=== PATIENT | male | born 1970 | race Caucasian/White ===

== ENCOUNTER → 2017-05-18 | Outpatient (CLI) | payer BC ==
--- NOTE | 2017-05-18 15:47 | DIAGNOSTIC IMAGING REPORT ---
SOFT TIS HEAD/NECK-THYROID HISTORY: Multinodular thyroid E04.2 Nontoxic multinodular [id number] COMPARISON: None. FINDINGS: Right lobe: Maximum dimension 6.7 cm. Several subcentimeter hypoechoic nodules measuring from 4 to 7 mm. No evidence for a dominant nodule. Left lobe: Maximum dimension 6.5 cm. Complex hypoechoic nodular density inferior left thyroid measuring 2.9 x 2.0 cm. Several associated microcalcifications. Isthmus: No nodules. IMPRESSION: 1. Multinodular thyroid. 2. Dominant nodule inferior aspect left thyroid measuring 2.9 x 2.0 cm. 3. Fine-needle aspiration under ultrasound guidance is recommended of the dominant nodule of the lower left thyroid The above report was generated using voice recognition software. It may contain grammatical, syntax or spelling errors. Electronically signed by: Lars Clayton M.D. 05/18/2017 3:45 PM Dictated Date/Time: 05/18/2017 3:43 PM
== END | disposition home or self-care (01) ==
LOC: C.ULTR 14:06
PROVIDERS: ATTEND Internal Medicine Endocrinology, Diabetes & Metabolism
DX: E04.2 Nontoxic multinodular goiter (principal)

== ENCOUNTER → 2017-05-21 | Outpatient (CLI) | payer BC ==
[~2017-05-21] MED LIST: GADAVIST IV PRN
--- NOTE | 2017-05-21 08:54 | DIAGNOSTIC IMAGING REPORT ---
MRI THE PITUITARY WITHOUT AND WITH CONTRAST CLINICAL HISTORY: E29.1 Hypogonadism in maleE22.1 [id number] COMPARISON STUDY: No previous studies for comparison. FINDINGS: Sagittal T1, an axial 3-D FIESTA, pre and post gadolinium dynamic coronal T1, and post gadolinium sagittal T1-weighted images were acquired. The patient was administered 8 cc of intravenous Gadavist. The pituitary gland is of normal size. The infundibulum is within the midline. No pituitary masses are visualized. IMPRESSION: Normal MRI of the pituitary Electronically signed by: Billy Welsh M.D. 05/21/2017 8:52 AM Dictated Date/Time: 05/21/2017 8:48 AM
--- NOTE | 2017-05-21 12:31 | DIAGNOSTIC IMAGING REPORT ---
ULTRASOUND-GUIDED FINE-NEEDLE ASPIRATION THYROID CLINICAL HISTORY: Left thyroid nodule. COMPARISON STUDY: Thyroid ultrasound 05/18/2015. PROCEDURE: The risks, benefits, and alternatives to the procedure were discussed with the patient. Written informed consent was obtained. The patient was placed supine in ultrasound, and the 2.9 cm nodule in the left lobe of the thyroid was localized by ultrasound and selected for fine needle aspiration. The left neck was prepped and draped in the usual sterile fashion. The nodule was aspirated under ultrasound guidance with 3 passes utilizing 25-gauge needles. Specimens were reviewed by the pathologist in real-time and deemed adequate for diagnosis. The patient tolerated the procedure well and left the department in satisfactory condition. IMPRESSION: Completed fine-needle aspiration of a 2.9 cm left thyroid nodule as above. The above report was generated using voice recognition software. It may contain grammatical, syntax or spelling errors. Electronically signed by: Weston Garcia M.D. 05/21/2017 12:29 PM Dictated Date/Time: 05/21/2017 12:28 PM
== END | disposition home or self-care (01) ==
LOC: C.MRI 07:39
PROVIDERS: ATTEND Internal Medicine Endocrinology, Diabetes & Metabolism
DX: E04.2 Nontoxic multinodular goiter (principal); E22.1 Hyperprolactinemia; E29.1 Testicular hypofunction

== ENCOUNTER → 2017-06-10 | Outpatient (CLI) | payer BC ==
[2017-06-10 08:59] LABS: ISTAT CREATININE 0.9 mg/dl (0.6-1.3); ISTAT HEMOGLOBIN 15.3 g/dl (14.0-18.0); ISTAT IONIZED CALCIUM 1.27 mmol/l (1.12-1.32)
== END | disposition home or self-care (01) ==
LOC: C.LAB 07:44
PROVIDERS: ATTEND Internal Medicine Endocrinology, Diabetes & Metabolism
DX: E22.1 Hyperprolactinemia (principal); R79.89 Other specified abnormal findings of blood chemistry

== ENCOUNTER → 2017-06-16 | Outpatient (CLI) | payer BC ==
--- NOTE | 2017-06-18 15:20 | POLYSOMNOGRAPH REPORT ---
CLINICAL DATA: A 47-year-old male with BMI of [address] Seymour and Dr. Donnelly for evaluation of fatigue and unrefreshing sleep. He has been told in the past that he has occasional snoring. On the evening of 06/16/2017, a home sleep apnea test was performed using [employer] type 3 monitor. RECORDING RESULTS: Total recording time was 10 hours. The patient's monitoring time and estimated sleep time was 9 hours. RESPIRATORY DATA: There was no evidence of clinically significant sleep apnea seen. The AI was 1.3. There were 6 obstructive and 1 central apneic episode. There were 5 hypopneic episodes. The longest respiratory event was 43 seconds. OXIMETRY DATA: No hypoxemia was seen. Oxygen everett was 90%. Mean saturation was 94%. HEART RATE DATA: Heart rates ranged from 40-56 beats per minute. SNORING DATA: Snoring was recorded throughout the night. IMPRESSION: No evidence of clinically significant sleep apnea/hypopnea or nocturnal hypoxemia to explain this patient's symptoms. RECOMMENDATIONS: The patient will be seen back in followup to review his data. NINI
== END | disposition home or self-care (01) ==
LOC: C.NEUR 09:03
PROVIDERS: ATTEND Internal Medicine Pulmonary Disease
DX: R53.83 Other fatigue (principal); R06.83 Snoring

== ENCOUNTER → 2017-06-22 | Outpatient (CLI) | payer BC | END | disposition home or self-care (01) | LOC: C.MAMM 08:12 | PROVIDERS: ATTEND Internal Medicine Endocrinology, Diabetes & Metabolism | DX: E29.1 Testicular hypofunction (principal); E55.9 Vitamin D deficiency, unspecified; E04.2 Nontoxic multinodular goiter; E22.1 Hyperprolactinemia; M85.88 Other specified disorders of bone density and structure, other site; M85.852 Other specified disorders of bone density and structure, left thigh ==